=== PATIENT | male | born 1980 | race African-American/Black ===

== ENCOUNTER 2024-08-26 01:00 | Emergency (ER) | payer SELFPAY ==
[~2024-08-26] VITALS: Ht 172.7 cm; Wt 77.0 kg
[2024-08-26 01:05] VITALS: O2SAT 94
[2024-08-26 01:07] VITALS: TEMP 36.44736
[2024-08-26] MEDS: SODIUM CHLORIDE 0.9% 1,000 ML IV ONE ×2 (01:12→01:26)
[2024-08-26] MEDS: FENTANYL CITRATE/PF 50MCG/ML 2ML VIAL IV ONE (01:15)
[2024-08-26] MEDS: TETANUS, DIPHTHERIA, PERTUSSIS VAC/PF 0.5ML (>10YR OLD) IM ONE (01:15)
[2024-08-26] MEDS: ACETAMINOPHEN 1000MG/100ML 100 ML IV ONE (01:16)
[2024-08-26] MEDS: ONDANSETRON HCL 4MG/2ML INJ IV NR (01:25)
[2024-08-26] MEDS: CEFAZOLIN 1000MG PREMIX 50 ML IV ONE (01:30)
[2024-08-26 01:32] VITALS: BP 127/98; PULSE 82; RESP 10; O2SAT 82
== END 2024-08-26 01:40 | disposition short-term general hospital (02) ==
LOC: ER 01:00
DX: S46.121A Laceration of muscle, fascia and tendon of long head of biceps, right arm, initial encounter (principal); W13.9XXA Fall from, out of or through building, not otherwise specified, initial encounter; Y93.89 Activity, other specified; Y92.89 Other specified places as the place of occurrence of the external cause; Y99.8 Other external cause status
CPT/HCPCS: 90715; 96368; 90471; 96365; 96375; 99285; J3010; J0690; J2405; J7030; Z7610 ×3; J0131